=== PATIENT | male | born 1955 | race Caucasian/White ===

== ENCOUNTER 2018-06-27 15:05 | Emergency (ER) | payer OTHER ==
[~2018-06-27] VITALS: Ht 170.1 cm; Wt 89.4 kg
[2018-06-27 15:59] LABS: BASO # 0.1 10*3/uL (0.0-0.1); BASO % 0.5 % (0.0-1.0); EOS # 0.2 10*3/uL (0.0-0.4); EOS % 1.8 % (1.0-4.0); HEMATOCRIT 39.6 % (42.0-52.0); HEMOGLOBIN 12.7 g/dl (14.0-18.0); LYMPH # 0.9 10*3/uL (1.3-4.4); LYMPH % 7.4 % (27.0-41.0); MEAN CELL VOLUME 86.1 fl (80.0-94.0); MEAN CORPUSCULAR HGB 27.6 pg (27.0-31.0); MEAN CORPUSCULAR HGB CONC 32.1 g/dl (33.0-37.0); MEAN PLATELET VOLUME 10.2 fl (9.6-12.3); MONO # 0.6 10*3/uL (0.1-1.0); MONO % 4.9 % (3.0-9.0); NEUT # 10.2 10*3/uL (2.3-7.9); PLATELET COUNT AUTOMATED 233 10*3/uL (130-400); RED CELL DISTRI WIDTH 14.8 % (0-14.5)
[2018-06-27 16:14] LABS: ALBUMIN 4.2 gm/dl (3.1-4.5); CREATININE 1.57 mg/dL (0.70-1.30); POTASSIUM 4.6 mmol/L (3.5-5.1); TOTAL PROTEIN 7.3 gm/dL (6.4-8.2)
[2018-06-27] MEDS ORDERED: ZOFRAN4 MG PO (16:59)
[2018-06-27] MEDS ORDERED: Percocet 325 MG1 TAB PO (16:59)
[2018-06-27] MEDS ORDERED: SEPTDS PO (16:59)
== END 2018-06-27 17:05 | disposition home or self-care (01) ==
LOC: ED 15:05
PROVIDERS: Nurse Practitioner Family
DX: N20.0 Calculus of kidney (principal); R03.0 Elevated blood-pressure reading, without diagnosis of hypertension; R91.1 Solitary pulmonary nodule; Z87.442 Personal history of urinary calculi

== ENCOUNTER 2019-07-06 19:56 | Inpatient (IN) | payer OTHER ==
[~2019-07-06] VITALS: Ht 170.1 cm; Wt 84.5 kg
[~2019-07-06 19:56] MED LIST: Percocet 325 MG1 TAB PO; SEPTDS PO; ZOFRAN4 MG PO
[2019-07-06 19:58] VITALS: BP 178/76
[2019-07-06 20:43] LABS: BASO # 0.1 10*3/uL (0.0-0.1); BASO % 0.5 % (0.0-1.0); EOS # 0.3 10*3/uL (0.0-0.4); EOS % 3.4 % (1.0-4.0); HEMATOCRIT 41.4 % (42.0-52.0); HEMOGLOBIN 13.2 g/dl (14.0-18.0); LYMPH # 1.1 10*3/uL (1.3-4.4); LYMPH % 11.8 % (27.0-41.0); MEAN CELL VOLUME 87.5 fl (80.0-94.0); MEAN CORPUSCULAR HGB 27.9 pg (27.0-31.0); MEAN CORPUSCULAR HGB CONC 31.9 g/dl (33.0-37.0); MEAN PLATELET VOLUME 10.5 fl (9.6-12.3); MONO # 0.7 10*3/uL (0.1-1.0); MONO % 7.4 % (3.0-9.0); NEUT # 7.2 10*3/uL (2.3-7.9); NEUT % 76.6 % (47.0-73.0); PLATELET COUNT AUTOMATED 215 10*3/uL (130-400); RED BLOOD COUNT 4.73 10*6/uL (4.50-5.90); RED CELL DISTRI WIDTH 14.9 % (0-14.5); WHITE BLOOD COUNT 9.4 10*3/uL (4.8-10.8)
[2019-07-06 20:54] LABS: ACT PARTIAL THROMBO TIME 28.5 SECONDS (20.0-32.1)
[2019-07-06 20:58] LABS: ALBUMIN 3.8 gm/dl (3.1-4.5); CREATININE 1.6 mg/dL (0.70-1.30)
--- NOTE | 2019-07-06 23:29 | NUR ---
CAP REFILL LESS THAN 3 SECONDS, RADIAL PULSE PALPABLE TO LEFT WRIST, ABLE TO MOVE ALL FINGERS, HAND AND ARM WARM TO TOUCH
--- NOTE | 2019-07-06 23:30 | NUR ---
RECEIVED REPORT FROM JOHNATHAN NOGUEIRA
--- NOTE | 2019-07-06 23:30 | NUR ---
DENIES DIZZINESS DENIES NUMBNESS IN EXTREMITY
[2019-07-06 23:31] VITALS: BP 187/88
[2019-07-07 00:09] VITALS: BP 162/82
--- NOTE | 2019-07-07 00:19 | NUR ---
DR IBRAHIM MARKED WOUND
[2019-07-07] MEDS ORDERED: CATAPRES-TTS 30.3 MG PO (00:47)
[2019-07-07] MEDS ORDERED: NORVASC10 MG PO (00:48)
[2019-07-07] MEDS ORDERED: VITAMIN D-32000 UNI1 PO (00:48)
[2019-07-07] MEDS ORDERED: PLAVIX75 M1 PO (00:49)
[2019-07-07] MEDS ORDERED: NORVASC2.5 MG PO (00:49)
[2019-07-07 00:50] VITALS: BP 170/78
[2019-07-07] MEDS ORDERED: ZETIA10 MG PO (00:50)
--- NOTE | 2019-07-07 00:50 | NUR ---
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 Chief complaint is FALL. Patient arrived via stretcher from ER. Monitor applied. Initial assessment completed. Vital signs taken and recorded. MANUELITO GUEVARA DO notified of admission to the unit. Orders received. See assessment for past medical history, medications and allergies. Patient and/or family oriented to unit. visitation policy reviewed. Clothing/patient valuable form completed. LASHONDA BARNARD A
[2019-07-07] MEDS ORDERED: GLUCOPHAGE500 M1 PO (00:51)
[2019-07-07] MEDS ORDERED: ONE DAILY FOR1 EAC2 PO (00:52)
[2019-07-07] MEDS ORDERED: ASPIRIN ADULT L81 M1 PO (00:52)
[2019-07-07] MEDS ORDERED: CRESTOR10 M1 PO (00:53)
[2019-07-07] MEDS ORDERED: CELEXA40 MG PO (00:53)
[2019-07-07] MEDS ORDERED: LABETALOL HYDR200 MG PO (00:54)
[2019-07-07] MEDS ORDERED: HYDRALAZINE HC100 MG PO (00:54)
[2019-07-07] MEDS ORDERED: VASCEPA1 G1 PO (00:55)
[2019-07-07] MEDS ORDERED: COZAAR50 M1 PO (00:55)
--- NOTE | 2019-07-07 00:57 | NUR ---
MED REC UP TO DATE VIA LIST PROVIDED BY .
--- NOTE | 2019-07-07 01:12 | NUR ---
PT HAS WOUNDS NOTED TO THE LEFT FOREARM, LEFT PINKY FINGER, LEFT AND RIGHT KNEE WELL MULTIPLE HEALING SCABBED AREAS TO THE BILATERAL LOWER EXT. PT STATES THAT THE SCABBED AREAS ARE D/T CUTTING GRASS.
--- NOTE | 2019-07-07 01:34 | NUR ---
DR COOK NOTIFIED OF NEED FOR WOUND CARE ORDERS.
[2019-07-07 06:53] LABS: BASO # 0.1 10*3/uL (0.0-0.1); BASO % 0.7 % (0.0-1.0); EOS # 0.3 10*3/uL (0.0-0.4); HEMATOCRIT 39.3 % (42.0-52.0); HEMOGLOBIN 12.7 g/dl (14.0-18.0); LYMPH # 1.5 10*3/uL (1.3-4.4); LYMPH % 17.5 % (27.0-41.0); MEAN CELL VOLUME 86.4 fl (80.0-94.0); MEAN CORPUSCULAR HGB 27.9 pg (27.0-31.0); MEAN CORPUSCULAR HGB CONC 32.3 g/dl (33.0-37.0); MEAN PLATELET VOLUME 10.4 fl (9.6-12.3); MONO # 0.7 10*3/uL (0.1-1.0); MONO % 8.1 % (3.0-9.0); NEUT # 5.9 10*3/uL (2.3-7.9); NEUT % 69.3 % (47.0-73.0); PLATELET COUNT AUTOMATED 194 10*3/uL (130-400); RED BLOOD COUNT 4.55 10*6/uL (4.50-5.90); RED CELL DISTRI WIDTH 14.7 % (0-14.5); WHITE BLOOD COUNT 8.5 10*3/uL (4.8-10.8)
[2019-07-07 07:27] LABS: CHLORIDE 108 mmol/L (98-107); POTASSIUM 3.4 mmol/L (3.5-5.1); SODIUM 140 mmol/L (136-145)
--- NOTE | 2019-07-07 07:47 | NUR ---
PT SITTING UP IN BED. NO DISTRESS NOTED. WILL MONITOR
[2019-07-07 07:49] LABS: ALBUMIN 3.6 gm/dl (3.1-4.5); ALKALINE PHOSPHATASE 86 U/L (45-117); BUN 27 mg/dl (7-24); CHOLESTEROL 112 mg/dL (<200); CREATININE 1.31 mg/dL (0.70-1.30); FREE T4 0.86 ng/dl (0.76-1.46); HDL CHOLESTEROL 29 mg/dl (40-60); LDL CHOLESTEROL 43 mg/dL (9-159); PHOSPHOROUS 2.9 mg/dL (2.5-4.9); SGOT/AST 16 IU/L (3-35); SGPT/ALT 29 U/L (12-78); TOTAL PROTEIN 6.8 gm/dL (6.4-8.2); TRIGLYCERIDES 201 mg/dl (<150); VLDL CHOLESTEROL 40 mg/dL (6-40)
[2019-07-07 08:00] VITALS: BP 180/81
[2019-07-07 08:39] LABS: VITAMIN D, 25-HYDROXY 31.2 ng/mL (30-100)
--- NOTE | 2019-07-07 08:44 | NUR ---
ARACELI RUIZ [id number] Please refer to the physician's history and physical for past medical history, comorbid conditions, and allergies. Diagnosis: TRAUMATIC HEMATOMA OF R FOREARM, EXTRAVASATION OF Gautam Score: 22,LOW OR NO RISK WOUND DESCRIPTIONS: Wound Number: 1 Location of the wound: left arm Thickness: Partial Size: 9.0cm x 6.5cm x 0.1cm Tunneling: none Undermining: none Sinus Tract: none Presence of Exudate: Sanguineous Amount: Light Color: Red Odor: None Periwound Skin Appearance: Edema Wound edges: approximated Pain (associated with wound): tender to touch How does patient state this happened? pt stated he fell down outside carrying garbage Wound Number: 2 Location of the wound: left 5th finger distal Thickness: Partial Size: 0.3cm x 0.8cm x 0.1cm Tunneling: none Undermining: none Sinus Tract: none Presence of Exudate: Sanguineous Amount: Light Color: Red Odor: None Periwound Skin Appearance: edema Wound edges: approximated Pain (associated with wound): none at time of assessment How does patient state this happened? pt stated he fell down outside carrying garbage Wound Number: 3 Location of the wound: left 5th finger proximal Thickness: Partial Size: 0.3cm x 0.4cm x 0.1cm Tunneling: none Undermining: none Sinus Tract: none Presence of Exudate: Sanguineous Amount: Light Color: Red Odor: None Periwound Skin Appearance: edema Wound edges: approximated Pain (associated with wound): none at time of assessment How does patient state this happened? pt stated he fell down outside carrying garbage Wound Number: 4 Location of the wound: left proximal knee Thickness: Partial Size: 2.0cm x 1.0cm x 0.1cm Tunneling: none Undermining: none Sinus Tract: none Presence of Exudate: none Amount: none Color: Red Odor: None Periwound Skin Appearance: edema Wound edges: approximated Pain (associated with wound): none at time of assessment How does patient state this happened? pt stated he fell down outside carrying garbage Wound Number: 5 Location of the wound: left distal knee Thickness: Partial Size: 2.5cm x 1.7cm x 0.1cm Tunneling: none Undermining: none Sinus Tract: none Presence of Exudate: none Amount: none Color: Red Odor: None Periwound Skin Appearance: edema Wound edges: approximated Pain (associated with wound): none at time of assessment How does patient state this happened? pt stated he fell down outside carrying garbage Wound Number: 6 Location of the wound: right knee Thickness: Partial Size: 3.2cm x 0.9cm x 0.1cm Tunneling: none Undermining: none Sinus Tract: none Presence of Exudate: none Amount: none Color: Red Odor: None Periwound Skin Appearance: edema Wound edges: approximated Pain (associated with wound): none at time of assessment How does patient state this happened? pt stated he fell down outside carrying garbage Surface the patient is resting on: Position Pro SKIN PREVENTION RECOMMENDATION: 1. Pressure redistribution support surface as appropriate 2. Elevate heels 3. Remove boots/TEDS every shift and reapply 4. Head of bed 30 degrees as tolerated 5. Assess nutrition and hydration 6. Manage moisture 7. Avoid the use of containment devices while in bed 8. Use absorptive products on surfaces limit layers of linens on bed 9. Turn and reposition every 1-2 hours in bed and every 1 hour in chair as tolerated 10. Weight shifts every 15 minutes while up in chair 11. Offloading with pillows or device to keep heels elevated off bed 12. Monitor skin at least every shift 13. Inspect under medical devices twice a day WOUND TREATMENT RECOMMENDATIONS: Cleanse bilateral knee with nss and apply bactroban ointment BID and leave open to air. Cleanse left 5th finger proximal and distal with nss and apply bactroban ointment BID and cover with bandaid BID. Cleanse left forearm with nss and apply bactroban ointment bid and cover with dsd BID
--- NOTE | 2019-07-07 08:52 | NUR ---
Recommend follow up for wound care in outpatient setting patient refused at this time.
--- NOTE | 2019-07-07 08:55 | NUR ---
Nursing screen received and chart reviewed. Patient admitted after a fall and injury to left forearm. Consider occupational therapy if patient should have a decline in ADLs or safety in mobility. Thank you. Vanesa Jose OTR/L
--- NOTE | 2019-07-07 09:10 | NUR ---
PHYSICAL THERAPY Nursing screen received and chart reviewed. Physical therapy evaluation received. Thank you. Sherry Choi,PT,DPT.
--- NOTE | 2019-07-07 10:28 | NUR ---
Dr. Grier given wound care recommendations he stated he will give them to Dr. Jones.
--- NOTE | 2019-07-07 11:17 | NUR ---
PHYSICAL THERAPY Physical therapy evaluation complete, 5E. Full evaluation/details to follow. Low complexity PT evaluation (02648) per chart review and evalaution. PT to progress gait, LE strength, and balance per POC. Recommend return home with home health services if goals not met. Thank you. Sherry Choi,PT,DPT.
[2019-07-07 12:00] VITALS: BP 169/86
--- NOTE | 2019-07-07 13:36 | NUR ---
[employer] Presser in to talk to patient. Patient states lives at HOME with . There are BASEMENT steps in the home. Physician: CORINNA HUTSONAVER [facility]acy: [facility] [place] [facility]: NONE Patient's level of ADLs: INDEPENDENT Patient has working utilities: YES DME: NONE Follow-up physician's appointment after d/c: WILL BE MADE BY HOSPITALIST NURSE DIRECTOR ON DISCHARGE. Does patient want to access PORTAL?: NO Discharge plan PT STATES HE LIVES AT HOME WITH AND IS INDEPENDENT IN CARE. STATES HE WILL GO HOME AND WILL HAVE NO NEEDS ON DISCHARGE. WILL CONTINUE TO FOLLOW. WILL HAVE A RIDE PER PT.. SAVANAH ROTHMAN
--- NOTE | 2019-07-07 14:20 | NUR ---
DR MENESES OFFICE NOTIFIED OF CONSULT
[2019-07-07 16:00] VITALS: BP 157/66
--- NOTE | 2019-07-07 19:21 | NUR ---
PATIENT RESTING IN BED WITH NO NEEDS MADE. BED IN LOWEST POSITION, CALL LIGHT IN REACH
[2019-07-07 20:00] VITALS: BP 184/76
--- NOTE | 2019-07-07 20:16 | NUR ---
DR COOK AWARE OF BLOOD PRESSURE. STATES TO GIVE BEDTIME BLOOD PRESSURE MEDICATIONS NOW.
--- NOTE | 2019-07-07 20:28 | NUR ---
PATIENT MEDICATED WITH BEDTIME MEDICATIONS PER ORDER. PATIENT STATES HE TAKES CELEXA AT BEDTIME. PHARMACY CALLED AND MEDICATION TIME CHANGED. PATIENT CONTINUOUSLY READING OVER MEDICATION LIST AND ASKING WHAT EVERY MEDICATION IS FOR. ANXIOUSNESS NOTED. PATIENT STATES HE DOES NOT WANT HIS ARM ELEVATED PER DR MENESES ORDERS. STATES THAT IS WHAT IS MAKING HIM ANXIOUS. STATES HE WOULD RATHER JUST ELEVATE HIS ARM ON THE BED.
--- NOTE | 2019-07-07 20:40 | NUR ---
PATIENT REFUSING TO HAVE ARM ELEVATED BY TUBIGRIP. ELEVATED WITH BLANKETS. ALSO REFUSING INSULIN AT THIS TIME. STATES HE DOES NOT TAKE IT AT HOME.
[2019-07-08] VITALS: BP 166/50
--- NOTE | 2019-07-08 02:36 | NUR ---
PATIENT RESTING IN BED. CONTINUES TO REFUSE TUBIGRIP FOR ARM ELEVATION. EDUCATED ON THE IMPORTANCE OF FOLLOWING DOCTORS ORDERS, AND THE REASONS FOR THEM. PATIENT VERBALIZED UNDERSTANDING AND CONTINUES TO REFUSE. BED IN LOWEST POSITION, CALL LIGHT IN REACH
--- NOTE | 2019-07-08 07:05 | NUR ---
ARRIVED ON SHIFT, INTRODUCED TO PATIENT, BEDSIDE REPORT RECEIVED, WHITE BOARD UPDATED, NO NEEDS VOICED AT THIS TIME.
[2019-07-08 07:24] LABS: BUN 19 mg/dl (7-24); CHLORIDE 109 mmol/L (98-107); CREATININE 1.06 mg/dL (0.70-1.30); POTASSIUM 3.9 mmol/L (3.5-5.1); SODIUM 139 mmol/L (136-145)
[2019-07-08 07:33] LABS: BASO # 0.1 10*3/uL (0.0-0.1); BASO % 0.9 % (0.0-1.0); EOS # 0.3 10*3/uL (0.0-0.4); EOS % 3.8 % (1.0-4.0); HEMATOCRIT 41.4 % (42.0-52.0); HEMOGLOBIN 13.5 g/dl (14.0-18.0); LYMPH # 1.3 10*3/uL (1.3-4.4); LYMPH % 15.4 % (27.0-41.0); MEAN CELL VOLUME 86.1 fl (80.0-94.0); MEAN CORPUSCULAR HGB 28.1 pg (27.0-31.0); MEAN CORPUSCULAR HGB CONC 32.6 g/dl (33.0-37.0); MEAN PLATELET VOLUME 10.9 fl (9.6-12.3); MONO # 0.7 10*3/uL (0.1-1.0); MONO % 7.7 % (3.0-9.0); NEUT # 6.2 10*3/uL (2.3-7.9); NEUT % 71.6 % (47.0-73.0); PLATELET COUNT AUTOMATED 185 10*3/uL (130-400); RED BLOOD COUNT 4.81 10*6/uL (4.50-5.90); RED CELL DISTRI WIDTH 14.6 % (0-14.5); WHITE BLOOD COUNT 8.7 10*3/uL (4.8-10.8)
--- NOTE | 2019-07-08 07:51 | NUR ---
Shift chart check completed.
--- NOTE | 2019-07-08 09:05 | NUR ---
PHYSICAL THERAPY Patient seen this am 1:1 for therapy visit and was sitting up on EOB upon therapist arrival. Patient presents with L forearm gauze wrap due to recent fall and Hematomo. Patient reports no c/o's pain and transfers sit to stand with SBA x 1. Patient ambulates without AD, 150'x 1, CGA, demonstrating decreased stride and decreased B arm swing. Patient also completed several standing balance ex including eyes open/closed with slight LOB and 90/180 turns, demonstrating unsteady balance Fair-. Patient returned to bedside chair and remained with call light, tray table and cell phone. Will continue per POC as tolerated, total treatment time 18 minutes. Kanu Jaffe, TEMPLATE REPRODUCTION TECHNICIAN
[2019-07-08 12:00] VITALS: BP 162/77
--- NOTE | 2019-07-08 13:33 | NUR ---
PT CONTINUES TO STATE HE WILL GO HOME WITH NO NEEDS. WILL CONTINUE TO FOLLOW.
[2019-07-08] MEDS ORDERED: PLAVIX75 M1 PO (13:54)
--- NOTE | 2019-07-08 14:52 | NUR ---
Discharge instructions reviewed with patient/family. Patient receptive and verbalizes understanding. Follow-up care arranged. Written instructions given to patient/family.REMINDED PATIENT NOT TO RESUME [facility] UNTIL SATURDAY. VERSED UNDERSTANDING. IV REMOVED, OFFERED AND REFUSED W/C. CATHIE KATZ
--- NOTE | 2019-07-10 07:50 | NUR ---
PHYSICAL THERAPY CO-SIGN I approve of the Physical Therapy notes written above. ZAIDA HOLDEN PT, DPT
== END 2019-07-08 14:58 | disposition home or self-care (01) | DRG 605 ==
LOC: ED 19:56 → EDHOLD 23:44 → 5E 23:44
PROVIDERS: Internal Medicine; Physician Assistant; ADMIT Internal Medicine
DX: S50.12XA Contusion of left forearm, initial encounter (principal); N18.3 Chronic kidney disease, stage 3 (moderate); E11.22 Type 2 diabetes mellitus with diabetic chronic kidney disease; R58 Hemorrhage, not elsewhere classified; E87.6 Hypokalemia; E83.41 Hypermagnesemia; G89.29 Other chronic pain; M54.9 Dorsalgia, unspecified; I25.10 Atherosclerotic heart disease of native coronary artery without angina pectoris; E78.5 Hyperlipidemia, unspecified; I12.9 Hypertensive chronic kidney disease with stage 1 through stage 4 chronic kidney disease, or unspecified chronic kidney disease; D64.9 Anemia, unspecified; W18.39XA Other fall on same level, initial encounter; Z87.442 Personal history of urinary calculi; Z86.73 Personal history of transient ischemic attack (TIA), and cerebral infarction without residual deficits; Z90.89 Acquired absence of other organs; Z79.02 Long term (current) use of antithrombotics/antiplatelets; Z79.899 Other long term (current) drug therapy; Z95.5 Presence of coronary angioplasty implant and graft; Z82.49 Family history of ischemic heart disease and other diseases of the circulatory system; Z80.0 Family history of malignant neoplasm of digestive organs; Z84.89 Family history of other specified conditions; Z79.82 Long term (current) use of aspirin; Z79.84 Long term (current) use of oral hypoglycemic drugs; Y93.89 Activity, other specified; Y92.89 Other specified places as the place of occurrence of the external cause; Y99.8 Other external cause status

== ENCOUNTER 2025-08-16 21:09 | Emergency (ER) | payer MEDICARE, OTHER ==
[~2025-08-16 21:09] MED LIST changes: +ASPIRIN ADULT L81 M1 PO; +CATAPRES-TTS 30.3 MG PO; +CELEXA40 MG PO; +COZAAR50 M1 PO; +CRESTOR10 M1 PO; +GLUCOPHAGE500 M1 PO; +HYDRALAZINE HC100 MG PO; +LABETALOL HYDR200 MG PO; +NORVASC10 MG PO; +NORVASC2.5 MG PO; +ONE DAILY FOR1 EAC2 PO; +PLAVIX75 M1 PO; +VASCEPA1 G1 PO; +VITAMIN D-32000 UNI1 PO; +ZETIA10 MG PO
[2025-08-17] MEDS ORDERED: Acetaminophen/Hydrocodone 5 MG/325 MG TABLET PO ONE (00:05)
[2025-08-17] MEDS ORDERED: CYCLOBENZAPRINE10 MG PO (00:28)
[2025-08-17] MEDS ORDERED: PREDNISONE10 M1 PO (00:28)
[2025-08-17] MEDS ORDERED: HYDROCODONE-AC1 EAC1 PO (00:28)
[2025-08-17] MEDS ORDERED: Cyclobenzaprine Hydrochlorid 10 MG TAB PO ONE ×2 (01:05→23:55)
== END 2025-08-17 01:15 | disposition home or self-care (01) ==
LOC: ED 21:09
DX: M54.42 Lumbago with sciatica, left side (principal); M62.838 Other muscle spasm; I25.10 Atherosclerotic heart disease of native coronary artery without angina pectoris; E11.9 Type 2 diabetes mellitus without complications; E78.5 Hyperlipidemia, unspecified; I10 Essential (primary) hypertension; Z90.89 Acquired absence of other organs; Z86.73 Personal history of transient ischemic attack (TIA), and cerebral infarction without residual deficits